=== PATIENT | female | born 1975 | race Caucasian/White ===

== ENCOUNTER 2016-12-28 13:05 | Emergency (ER) | payer OTHER ==
[~2016-12-28 13:05] MED LIST: ACETAMINOPHEN; ALLEVE; ATIVAN PO; DOLOBID PO; FLEXERIL PO; IBUPROFEN PO; LORTAB 7.5-5001 TAB PO; MEDROL PO; NO MEDICATIONS; TYLENOL #3 PO; ULTRAM PO; VICODIN 5/500 T1 TAB PO; VOLTAREN75 MG PO
== END 2016-12-28 13:45 | disposition home or self-care (01) ==
LOC: SED 13:05
DX: T15.91XA Foreign body on external eye, part unspecified, right eye, initial encounter (principal); F17.200 Nicotine dependence, unspecified, uncomplicated; W45.8XXA Other foreign body or object entering through skin, initial encounter
CPT/HCPCS: 99282